=== PATIENT | male | born 1955 | race Hispanic/Latino ===

== ENCOUNTER 2017-11-08 04:47 | Observation (INO) | payer BC ==
[2017-11-08 05:03] VITALS: BMI 25.5
--- NOTE | 2017-11-08 05:36 | ED PDOC ---
HPI: Chest Pain Chief Complaint (Provider): chest pain History Per: Patient History/Exam Limitations: no limitations Onset/Duration Of Symptoms: Hrs (3) Current Symptoms Are (Timing): Better Associated Symptoms: Dyspnea, Diaphoresis Additional History Per: Patient <Demetria Olvera - Last Filed: 11/08/17 06:14> <Glenn Marino - Last Filed: 11/08/17 06:58> Time Seen by Provider: 11/08/17 05:20 Chief Complaint (Nursing): Chest Pain Additional Complaint(s): 62 y/o male presents for evaluation of right-sided chest tightness and shortness of breath x 3 hours. Patient states symptoms woke him from his sleep ; with associated diaphoresis, dizziness, and numbness to right upper extremity. Patient states he finished a course of Tamiflu for suspected influenza on Sunday but still felt some congestion in his chest so he went back to [facility] and was prescribed Levaquin yesterday, took first dose last night. Denies fever, nausea/vomiting, nasal congestion/discharge, cough, palpitations , abdominal pain, leg pain/swelling, recent travel. (Demetria Olvera) Past Medical History Reviewed: Historical Data, Nursing Documentation, Vital Signs - Medical History PMH: No Chronic Diseases - Family History Family History: States: No Known Family Hx - Social History Current smoker - smoking cessation education provided: No Alcohol: Social Drugs: Denies <Demetria Olvera - Last Filed: 11/08/17 06:14> <Glenn Marino - Last Filed: 11/08/17 06:58> Vital Signs: Last Vital Signs Temp 97.9 F 11/08/17 05:03 Pulse 64 11/08/17 06:25 Resp 16 11/08/17 05:03 BP 139/88 11/08/17 06:25 Pulse Ox 98 11/08/17 06:14 - Allergies Allergies/Adverse Reactions: Allergies Allergy/AdvReac Type Severity Reaction Status Date / Time No Known Allergies Allergy Verified 11/08/17 05:02 Review of Systems ROS Statement: Except As Marked, All Systems Reviewed And Found Negative Cardiovascular: Positive for: Chest Pain <Demetria Olvera - Last Filed: 11/08/17 06:14> Physical Exam - Reviewed Nursing Documentation Reviewed: Yes Vital Signs Reviewed: Yes - Physical Exam Appears: Positive for: Well, Non-toxic, No Acute Distress Head Exam: Positive for: ATRAUMATIC, NORMAL INSPECTION, NORMOCEPHALIC Skin: Positive for: Normal Color Eye Exam: Positive for: Normal appearance ENT: Positive for: Normal ENT Inspection Cardiovascular/Chest: Positive for: Regular Rate, Rhythm Respiratory: Positive for: Normal Breath Sounds Gastrointestinal/Abdominal: Positive for: Normal Exam Back: Positive for: Normal Inspection Extremity: Positive for: Normal ROM Neurologic/Psych: Positive for: Alert, Oriented. Negative for: Motor/Sensory Deficits <Demetria Ovlera - Last Filed: 11/08/17 06:14> - ECG ECG: Positive for: Viewed By Me (reviewed by ED attending) ECG Rhythm: Positive for: Sinus Rhythm O2 Sat by Pulse Oximetry: 98 Pulse Ox Interpretation: Normal <Demetria Olvera - Last Filed: 11/08/17 06:14> - Laboratory Results Result Diagrams: 11/08/17 06:16 11/08/17 06:16 <Glenn Marino - Last Filed: 11/08/17 06:58> - Progress ED Course And Treament: labs, ekg, chest xray, asa PO (Demetria Olvera) Medical Decision Making <Demetria Olvera - Last Filed: 11/08/17 06:14> <Glenn Marino - Last Filed: 11/08/17 06:58> Medical Decision Makin Patient will be signed out to Dr. Martinez pending labs. Scribe Attestation: Documented by Maggie Tarango acting as a scribe for Glenn Marino MD. Scribe Attestation: All medical record entries made by the Scribe were at my direction and personally dictated by me. I have reviewed the chart and agree that the record accurately reflects my personal performance of the history, physical exam, medical decision making, and the department course for this patient. I have also personally directed, reviewed, and agree with the discharge instructions and disposition. (Glenn Marino) Disposition - Disposition Disposition Time: 06:00 Patient Signed Over To: Glenn Marino Handoff Comments: pending labs, xray, re-eval <Demetria Olvera - Last Filed: 11/08/17 06:14> - Disposition Disposition Time: 07:00 Patient Signed Over To: Ten Martinez Handoff Comments: pending labs <Glenn Marino - Last Filed: 11/08/17 06:58> - Clinical Impression Clinical Impression: Chest pain - Disposition Condition: [facility]IR Forms: [facility] ([place]gasque)
[2017-11-08 06:19] LABS: BASO # 0.1 K/uL (0.0-0.2); BASO % 0.6 % (0.0-2.0); EOS # 0.1 K/uL (0.0-0.7); EOS % 1.1 % (0.0-4.0); HEMOGLOBIN 16.2 g/dL (12.0-18.0); LYMPH # 0.9 K/uL (1.0-4.3); LYMPH % 10.6 % (20.0-40.0); MEAN CORPUSCULAR HEMOGLOBIN 33.4 pg (27.0-31.0); MEAN CORPUSCULAR HGB CONC 35.2 g/dL (33.0-37.0); MEAN PLATELET VOLUME 7.8 fl (7.2-11.7); MONO # 0.5 K/uL (0.0-0.8); MONO % 5.3 % (0.0-10.0); NEUT # 7.1 K/uL (1.8-7.0); NEUT % 82.4 % (50.0-75.0); NRBC % 0.2 % (0.0-0.0); RBC 4.85 Mil/uL (4.40-5.90); WHITE BLOOD COUNT 8.7 K/uL (4.8-10.8)
[2017-11-08 06:29] LABS: ALB/GLOB RATIO 1.4 (1.0-2.1); ALBUMIN 4.4 g/dL (3.5-5.0); GFR AFRICAN-AMERICAN > 60; GFR NON-AFRICAN AMERICAN > 60
[2017-11-08 06:34] LABS: ALT/SGPT 78 U/L (21-72); AST/SGOT 81 U/L (17-59); BLOOD UREA NITROGEN 14 mg/dl (9-20)
--- NOTE | 2017-11-08 09:33 | RAD ---
HISTORY: chest pain COMPARISON: No prior. TECHNIQUE: Chest PA and lateral FINDINGS: LUNGS: No active pulmonary disease. PLEURA: No significant pleural effusion identified. No pneumothorax apparent. CARDIOVASCULAR: Normal. OSSEOUS STRUCTURES: Degenerative changes. VISUALIZED UPPER ABDOMEN: Normal. OTHER FINDINGS: None. IMPRESSION: No active disease.
--- NOTE | 2017-11-08 11:12 | ED PDOC ---
- Laboratory Results Result Diagrams: 11/08/17 06:16 11/08/17 06:16 - ECG O2 Sat by Pulse Oximetry: 98 Disposition - Clinical Impression Clinical Impression: Chest pain - POA Present On Arrival: None - Disposition Disposition: Hospitalized as Observation Patient Disposition Time: 11:12 Condition: FAIR Forms: [facility] ([place]an)
--- NOTE | 2017-11-08 19:24 | CP.PCM.HP ---
History of Present Illness - History of Present Illness History of Present Illness: A 62 year old male was admitted for right-sided chest tightness and shortness of breath x 3 hours. Patient states symptoms woke him from his sleep around 2 O 'clock in the morning with associated hyperventilating, diaphoresis, dizziness, and numbness to right upper extremity. His drove him here. Patient states he finished a course of Tamiflu for suspected influenza on three days ago but still felt some congestion in his chest so he went back to [facility] and was prescribed Levaquin previous night, took first dose , 500 mg previous night at 8 PM. He had a walking pneumonia two years ago. Denies fever, nausea/vomiting, nasal congestion/discharge, cough, palpitations , abdominal pain, leg pain/swelling, recent travel. Present on Admission - Present on Admission Any Indicators Present on Admission: No History of DVT/PE: No History of Uncontrolled Diabetes: No Urinary Catheter: No Decubitus Ulcer Present: No Review of Systems - Constitutional Constitutional: absent: Chills, Fever - Cardiovascular Cardiovascular: Chest Pain, Dyspnea - Respiratory Respiratory: absent: Cough - Gastrointestinal Gastrointestinal: absent: Bloating, Nausea Past Patient History - Past Medical History & Family History Past Medical History?: Yes - Past Social History Smoking Status: Never Smoked - CARDIAC Hx Cardiac Disorders: No - PULMONARY Hx Respiratory Disorders: Yes Hx Pneumonia: Yes - NEUROLOGICAL Hx Neurological Disorder: No - HEENT Hx HEENT Problems: No - RENAL Hx Chronic Kidney Disease: No - ENDOCRINE/METABOLIC Hx Endocrine Disorders: No - HEMATOLOGICAL/ONCOLOGICAL Hx Blood Disorders: No - INTEGUMENTARY Hx Dermatological Problems: No - MUSCULOSKELETAL/RHEUMATOLOGICAL Hx Musculoskeletal Disorders: No Hx Falls: No - GASTROINTESTINAL Hx Gastrointestinal Disorders: No - GENITOURINARY/GYNECOLOGICAL Hx Genitourinary Disorders: No - PSYCHIATRIC Hx Psychophysiologic Disorder: No Hx Substance Use: No - SURGICAL HISTORY Hx Surgeries: Yes Other/Comment: throat ppolyps removed 2 yrs ago - ANESTHESIA Hx Anesthesia: Yes Hx Anesthesia Reactions: No Hx Malignant Hyperthermia: No Has any member of the family had a problem w/ anesthesia?: No Meds Allergies/Adverse Reactions: Allergies Allergy/AdvReac Type Severity Reaction Status Date / Time No Known Allergies Allergy Verified 11/08/17 05:02 Physical Exam - Constitutional Appears: No Acute Distress - Neck Exam Neck exam: Positive for: Full Rom - Respiratory Exam Respiratory Exam: Clear to Auscultation Bilateral. absent: Wheezes - Cardiovascular Exam Cardiovascular Exam: REGULAR RHYTHM. absent: Systolic Murmur - GI/Abdominal Exam GI & Abdominal Exam: Soft. absent: Tenderness Results - Vital Signs Recent Vital Signs: Last Vital Signs Temp 98.6 F 11/08/17 16:04 Pulse 61 11/08/17 16:04 Resp 20 11/08/17 16:04 BP 148/74 11/08/17 16:04 Pulse Ox 96 11/08/17 16:04 - Labs Result Diagrams: 11/08/17 06:16 11/09/17 04:37 Labs: Laboratory Results - last 24 hr 11/08/17 11/08/17 11/08/17 06:16 06:16 07:04 WBC 8.7 RBC 4.85 Hgb 16.2 Hct 46.1 MCV 95.0 H MCH 33.4 H MCHC 35.2 RDW 13.0 Plt Count 267 MPV 7.8 Neut % (Auto) 82.4 H Lymph % (Auto) 10.6 L Blair % (Auto) 5.3 Eos % (Auto) 1.1 Baso % (Auto) 0.6 Neut # (Auto) 7.1 H Lymph # (Auto) 0.9 L Blair # (Auto) 0.5 Eos # (Auto) 0.1 Baso # (Auto) 0.1 D-Dimer, Quantitative 91 Sodium 144 Potassium 4.9 Chloride 105 Carbon Dioxide 27 Anion Gap 17 BUN 14 Creatinine 0.7 L Est GFR ( Amer) > 60 Est GFR (Non-Af Amer) > 60 Random Glucose 134 H Calcium 9.0 Total Bilirubin 0.5 AST 81 H ALT 78 H Alkaline Phosphatase 92 Troponin I < 0.0120 Total Protein 7.6 Albumin 4.4 Globulin 3.2 Albumin/Globulin Ratio 1.4 11/08/17 17:04 WBC RBC Hgb Hct MCV MCH MCHC RDW Plt Count MPV Neut % (Auto) Lymph % (Auto) Blair % (Auto) Eos % (Auto) Baso % (Auto) Neut # (Auto) Lymph # (Auto) Blair # (Auto) Eos # (Auto) Baso # (Auto) D-Dimer, Quantitative Sodium Potassium Chloride Carbon Dioxide Anion Gap BUN Creatinine Est GFR ( Amer) Est GFR (Non-Af Amer) Random Glucose Calcium Total Bilirubin AST ALT Alkaline Phosphatase Troponin I < 0.0120 Total Protein Albumin Globulin Albumin/Globulin Ratio Assessment & Plan - Assessment and Plan (Free Text) Assessment: Chest pain R/O ACS Plan: check troponin x 3 every eight hours labs cardiology consult for chest pain continue tele observation - Date & Time Date: 11/08/17 Time: 19:27
[2017-11-09 06:37] LABS: ALB/GLOB RATIO 1.4 (1.0-2.1); ALT/SGPT 81 U/L (21-72); AST/SGOT 43 U/L (17-59); BLOOD UREA NITROGEN 14 mg/dl (9-20); GFR AFRICAN-AMERICAN > 60; GFR NON-AFRICAN AMERICAN > 60; HDL CHOLESTEROL 44 MG/DL (30-70)
[2017-11-09 06:45] LABS: LDL CHOLESTEROL 105 mg/dL (0-129)
--- NOTE | 2017-11-09 06:57 | CP.PCM.PN ---
Subjective - Date & Time of Evaluation Date of Evaluation: 11/09/17 Time of Evaluation: 06:56 - Subjective Subjective: no chest pain this morning no shortness of breath Objective - Vital Signs/Intake and Output Vital Signs (last 24 hours): Temp Pulse Resp BP Pulse Ox 97.6 F 56 L 16 150/85 96 11/09/17 05:03 11/09/17 05:03 11/09/17 05:03 11/09/17 05:03 11/09/17 05:03 - Medications Medications: Current Medications Aspirin (Aspirin Chewable) 81 mg PO DAILY CLINT - Labs Labs: 11/08/17 06:16 11/09/17 04:37 - Constitutional Appears: No Acute Distress - Neck Exam Neck Exam: Full ROM - Respiratory Exam Respiratory Exam: Clear to Ausculation Bilateral. absent: Wheezes - Cardiovascular Exam Cardiovascular Exam: REGULAR RHYTHM. absent: Murmur - GI/Abdominal Exam GI & Abdominal Exam: Soft Assessment and Plan - Assessment and Plan (Free Text) Assessment: chest pain R/O ACS Plan: troponin x 3 cardiology consult
[2017-11-09 08:06] VITALS: RESP 20
--- NOTE | 2017-11-09 12:45 | CP.PCM.CON ---
History of Present Illness - History of Present Illness History of Present Illness: This 62-year-old man came to the emergency room after waking up from sleep with severe right pectoral 8 which eventually traveled to his right infrascapular area. It persisted for more than 6 hours before he finally came to the emergency room. The patient had recently had flu and was given antibiotic when it developed into bronchitis. He was recovering from these when this particular event occurred. The patient is extremely active and often walks more than 5 miles in the course of an average day. He is not a smoker or hypertensive and he is not a diabetic. His last hospitalization was more than 25 years back. He does not take any medications on a regular basis and has had a steady weight. There is no significant past or family history. Physical examination shows a middle aged pleasant man who is able to lie virtually flat in bed and with comfortably at 14-16 breaths per minute. He was afebrile with a pulse rate of 68 bpm and regular and a blood pressure of 126/76 mmHg. His jugular venous pressure was not elevated and there was no edema over his lower extremity. His pedal pulses are well felt. There were no carotid bruits. There was no lymphadenopathy. The apex was not palpable. The first and second heart sounds were normal. There was no murmur or gallop. There were no rales. His abdomen was soft liver and spleen are not palpable. His electromyogram showed sinus rhythm with a normal EKG pattern. 3 sets of cardiac enzymes were negative for any evidence of myocyte injury. The rest of his labs were noted. Impression: Atypical chest pain with no evidence of acute coronary syndrome. The patient may be allowed to return home to continue his care as an outpatient. Past Patient History - Past Medical History & Family History Past Medical History?: Yes - Past Social History Smoking Status: Never Smoked - CARDIAC Hx Cardiac Disorders: No - PULMONARY Hx Respiratory Disorders: Yes Hx Pneumonia: Yes - NEUROLOGICAL Hx Neurological Disorder: No - HEENT Hx HEENT Problems: No - RENAL Hx Chronic Kidney Disease: No - ENDOCRINE/METABOLIC Hx Endocrine Disorders: No - HEMATOLOGICAL/ONCOLOGICAL Hx Blood Disorders: No - INTEGUMENTARY Hx Dermatological Problems: No - MUSCULOSKELETAL/RHEUMATOLOGICAL Hx Musculoskeletal Disorders: No Hx Falls: No - GASTROINTESTINAL Hx Gastrointestinal Disorders: No - GENITOURINARY/GYNECOLOGICAL Hx Genitourinary Disorders: No - PSYCHIATRIC Hx Psychophysiologic Disorder: No Hx Substance Use: No - SURGICAL HISTORY Hx Surgeries: Yes Other/Comment: throat ppolyps removed 2 yrs ago - ANESTHESIA Hx Anesthesia: Yes Hx Anesthesia Reactions: No Hx Malignant Hyperthermia: No Has any member of the family had a problem w/ anesthesia?: No Meds Allergies/Adverse Reactions: Allergies Allergy/AdvReac Type Severity Reaction Status Date / Time No Known Allergies Allergy Verified 11/08/17 05:02 - Medications Medications: Current Medications Aspirin (Aspirin Chewable) 81 mg PO DAILY CLINT Last Admin: 11/09/17 09:29 Dose: 81 mg Results - Vital Signs Recent Vital Signs: Last Vital Signs Temp 97.5 F L 11/09/17 08:00 Pulse 58 L 11/09/17 08:00 Resp 20 11/09/17 08:00 BP 151/87 H 11/09/17 08:00 Pulse Ox 96 11/09/17 08:00 - Labs Result Diagrams: 11/08/17 06:16 11/09/17 04:37 Labs: Laboratory Results - last 24 hr 11/08/17 11/09/17 17:04 04:37 Sodium 141 Potassium 4.3 Chloride 102 Carbon Dioxide 28 Anion Gap 15 BUN 14 Creatinine 0.8 Est GFR ( Amer) > 60 Est GFR (Non-Af Amer) > 60 Random Glucose 117 H Calcium 9.0 Total Bilirubin 1.1 AST 43 ALT 81 H Alkaline Phosphatase 99 Troponin I < 0.0120 < 0.0120 Total Protein 6.9 Albumin 4.0 Globulin 2.9 Albumin/Globulin Ratio 1.4 Triglycerides 178 H Cholesterol 187 LDL Cholesterol Direct 105 HDL Cholesterol 44
[2017-11-09 13:22] VITALS: BP 138/77; PULSE 56; TEMP 97.8; O2SAT 97
== END 2017-11-09 17:01 | disposition home or self-care (01) ==
LOC: H.ER 04:47 → H.ERHOLD 11:13 → H.TEL 13:23
PROVIDERS: ADMIT Internal Medicine; ATTEND Internal Medicine
DX: R07.89 Other chest pain (principal); R06.02 Shortness of breath; R20.0 Anesthesia of skin
CPT/HCPCS: 36415; 71046; 80053; 80061; 84484; 85025; 85378; 99285; G0378